=== PATIENT | male | born 1995 | race Caucasian/White ===

== ENCOUNTER 2017-06-18 08:53 | Emergency (ER) | payer BC ==
[2017-06-18] MEDS ORDERED: Sodium Chloride 0.9% 2.5 ML Syringe FLUSH PRN (09:17)
[2017-06-18] MEDS ORDERED: Ondansetron 4 MG/2 ML SDV IVPUSH ONE (09:17)
[2017-06-18] MEDS ORDERED: Dicyclomine 10 MG Cap PO ONE (09:17)
[2017-06-18] MEDS ORDERED: Ketorolac 30 MG/ML SDV IVPUSH ONE (09:17)
[2017-06-18] MEDS ORDERED: Sodium Chloride 0.9% 10 ML Syringe FLUSH PRN (09:17)
[2017-06-18] MEDS ORDERED: Sodium Chloride 0.9% 1,000 ML IV ONE (09:17)
--- NOTE | 2017-06-18 09:25 | EDM.PDOC ---
ED HPI GENERAL MEDICAL PROBLEM - General Chief Complaint: Abdominal Pain Stated Complaint: ABD PAIN Time Seen by Provider: 06/18/17 09:03 - History of Present Illness INITIAL COMMENTS - FREE TEXT/NARRATIVE: HISTORY AND PHYSICAL: History of present illness: The patient is a 22-year-old male who presents with complaints of abdominal pain that started at 1 AM and woke him from sleep. He initially told triage that it was in the upper abdomen and on my evaluation he says it is mid abdomen and spreads right and left. He said it was associated with some dry heaving but no actual vomiting and he has had no fever chills flank pain or urinary complaints. He has no surgical history and has never had an endoscopy or colonoscopy. With imaging in the patient's history is that he takes antidiarrheal medicine almost daily because he says that he will have multiple bowel movements of mushy diarrhea every single day if he does not take over-the- counter antidiarrheals. He says this been going on for years. He has never seen a GI doctor for evaluation of this. He says that he has not had a change in his bowel movements recently and he ate normal food last evening. He did drink 2 beers last evening which is not unusual and he has never had an intolerance to it. He tried [id number] medications and milk to help with discomfort but did not help. He is here for evaluation. Review of systems: As per history of present illness and below otherwise all systems reviewed and negative. Past medical history: As per history of present illness and as reviewed below otherwise noncontributory. Surgical history: As per history of present illness and as reviewed below otherwise noncontributory. Social history: No reported history of drug or alcohol abuse. Family history: As per history of present illness and as reviewed below otherwise noncontributory. Physical exam: Gen.: Well-developed well-nourished thin man who is nontoxic and moves easily in the ED. Vital signs of been noted by me HEENT: Atraumatic, normocephalic, negative for conjunctival pallor or scleral icterus, mucous membranes moist, throat clear, neck supple, nontender, trachea midline. Lungs: Clear to auscultation, breath sounds equal bilaterally, chest nontender. Heart: S1S2, regular, negative for clicks, rubs, or JVD. Abdomen: Soft, nondistended, there is hypoactive bowel sounds and no tympany on percussion. There is discrete tenderness in the left upper left mid and left lower quadrants without any right-sided tenderness, there is no rebound or guarding. Negative for masses or hepatosplenomegaly. Negative for costovertebral tenderness. Pelvis: Stable nontender. Genitourinary: Deferred. Rectal: Deferred. Extremities: Atraumatic, negative for cords or calf pain. Neurovascular unremarkable. Neuro: Awake, alert, oriented. Cranial nerves II through XII unremarkable. Cerebellum unremarkable. Motor and sensory unremarkable throughout. Exam nonfocal. Diagnostics: CBC CMP amylase lipase H. pylori CT scan of the abdomen and pelvis CRP Therapeutics: IV IV fluids Toradol Zofran and Bentyl I discussed with patient TESTING care results and need for follow-up in our clinic. He says he does feel somewhat improved but still has the discomfort. I will start him on a PPI as well as Bentyl and give him referrals to our clinic for further evaluation. Impression: Abdominal pain with history of chronic diarrhea etiology unclear stable Definitive disposition and diagnosis as appropriate pending reevaluation and review of above. Middle Abdominal Pain Score (Numeric/FACES): 8 - Related Data Allergies Allergy/AdvReac Type Severity Reaction Status Date / Time No Known Allergies Allergy Verified 06/18/17 09:06 Home Meds: Home Meds . [No Known Home Meds] 06/18/17 [History] Past Medical History - Past Health History Medical/Surgical History: Denies Medical/Surgical History Social & Family History - Tobacco Use Smoking Status *Q: Never Smoker Second Hand Smoke Exposure: No - Caffeine Use Caffeine Use: Reports: Coffee, Energy Drinks - Recreational Drug Use Recreational Drug Use: No ED ROS GENERAL - Review of Systems Review Of Systems: ROS reveals no pertinent complaints other than HPI. ED EXAM, GENERAL - Physical Exam Exam: See Below (See dictation) Course - Vital Signs Last Recorded V/S: Last Vital Signs Temp 36.7 C 06/18/17 09:04 Pulse 64 06/18/17 09:04 Resp 16 06/18/17 09:04 BP 136/88 06/18/17 09:04 Pulse Ox 96 06/18/17 09:04 - Orders/Labs/Meds Orders: Active Orders 24 hr Category Date Time Status Abdomen Pelvis w Cont [CT] Stat Exams 06/18/17 09:17 Taken Sodium Chloride 0.9% [Saline Flush] Med 06/18/17 09:17 Active 10 ml FLUSH ASDIRECTED PRN Sodium Chloride 0.9% [Saline Flush] Med 06/18/17 09:17 Active 2.5 ml FLUSH ASDIRECTED PRN Saline Lock Insert [OM.PC] Stat Oth 06/18/17 09:17 Ordered Medication Orders Sodium Chloride (Saline Flush) 10 ml FLUSH ASDIRECTED PRN PRN Reason: Keep Vein Open Sodium Chloride (Saline Flush) 2.5 ml FLUSH ASDIRECTED PRN PRN Reason: Keep Vein Open Labs: Laboratory Tests 06/18/17 06/18/17 06/18/17 Range/Units 09:27 09:27 09:27 WBC 12.94 H (4.0-11.0) K/uL RBC 5.13 (4.50-5.90) M/uL Hgb 15.3 (13.0-17.0) g/dL Hct 43.5 (38.0-50.0) % MCV 84.8 (80.0-98.0) fL MCH 29.8 (27.0-32.0) pg MCHC 35.2 (31.0-37.0) g/dL RDW Std Deviation 38.7 (28.0-62.0) fl RDW Coeff of Demetrio 13 (11.0-15.0) % Plt Count 337 (150-400) K/uL MPV 9.50 (7.40-12.00) fL Neut % (Auto) 82.1 H (48.0-80.0) % Lymph % (Auto) 11.6 L (16.0-40.0) % Wheeler % (Auto) 6.0 (0.0-15.0) % Eos % (Auto) 0.1 (0.0-7.0) % Baso % (Auto) 0.2 (0.0-1.5) % Neut # (Auto) 10.6 H (1.4-5.7) K/uL Lymph # (Auto) 1.5 (0.6-2.4) K/uL Wheeler # (Auto) 0.8 (0.0-0.8) K/uL Eos # (Auto) 0.0 (0.0-0.7) K/uL Baso # (Auto) 0.0 (0.0-0.1) K/uL Nucleated RBC % 0.0 /100WBC Nucleated RBCs # 0 K/uL Sodium 137 (136-146) mmol/L Potassium 4.2 (3.5-5.1) mmol/L Chloride 104 (98-110) mmol/L Carbon Dioxide 26 (21-31) mmol/L BUN 10 (6.0-23.0) mg/dL Creatinine 0.9 (0.6-1.5) mg/dL Est Cr Clr Drug Dosing 118.33 mL/min Estimated GFR (MDRD) > 60.0 ml/min Glucose 121 H (60-110) mg/dL Calcium 9.7 (8.8-10.8) mg/dL Total Bilirubin 0.5 (0.1-1.5) mg/dL AST 16 (5-40) IU/L ALT 12 (8-54) IU/L Alkaline Phosphatase 57 (40-150) C-Reactive Protein (0.0-0.5) mg/dL Total Protein 7.5 (6.0-8.0) g/dL Albumin 4.6 (3.5-5.0) g/dL Globulin 2.9 (2.0-3.5) g/dL Albumin/Globulin Ratio 1.6 (1.3-2.8) Amylase 69 (10-90) U/L Lipase < 9 (7-80) U/L H. pylori IgG Antibody NEGATIVE (NEG) 06/18/17 Range/Units 09:27 WBC (4.0-11.0) K/uL RBC (4.50-5.90) M/uL Hgb (13.0-17.0) g/dL Hct (38.0-50.0) % MCV (80.0-98.0) fL MCH (27.0-32.0) pg MCHC (31.0-37.0) g/dL RDW Std Deviation (28.0-62.0) fl RDW Coeff of Demetrio (11.0-15.0) % Plt Count (150-400) K/uL MPV (7.40-12.00) fL Neut % (Auto) (48.0-80.0) % Lymph % (Auto) (16.0-40.0) % Wheeler % (Auto) (0.0-15.0) % Eos % (Auto) (0.0-7.0) % Baso % (Auto) (0.0-1.5) % Neut # (Auto) (1.4-5.7) K/uL Lymph # (Auto) (0.6-2.4) K/uL Wheeler # (Auto) (0.0-0.8) K/uL Eos # (Auto) (0.0-0.7) K/uL Baso # (Auto) (0.0-0.1) K/uL Nucleated RBC % /100WBC Nucleated RBCs # K/uL Sodium (136-146) mmol/L Potassium (3.5-5.1) mmol/L Chloride (98-110) mmol/L Carbon Dioxide (21-31) mmol/L BUN (6.0-23.0) mg/dL Creatinine (0.6-1.5) mg/dL Est Cr Clr Drug Dosing mL/min Estimated GFR (MDRD) ml/min Glucose (60-110) mg/dL Calcium (8.8-10.8) mg/dL Total Bilirubin (0.1-1.5) mg/dL AST (5-40) IU/L ALT (8-54) IU/L Alkaline Phosphatase (40-150) C-Reactive Protein 0.07 (0.0-0.5) mg/dL Total Protein (6.0-8.0) g/dL Albumin (3.5-5.0) g/dL Globulin (2.0-3.5) g/dL Albumin/Globulin Ratio (1.3-2.8) Amylase (10-90) U/L Lipase (7-80) U/L H. pylori IgG Antibody (NEG) Meds: Medications Generic Name Dose Route Start Last Admin Trade Name Freq PRN Reason Stop Dose Admin Sodium Chloride 10 ml 06/18/17 09:17 Saline Flush FLUSH ASDIRECTED PRN Keep Vein Open Sodium Chloride 2.5 ml 06/18/17 09:17 Saline Flush FLUSH ASDIRECTED PRN Keep Vein Open Discontinued Medications Generic Name Dose Route Start Last Admin Trade Name Freq PRN Reason Stop Dose Admin Dicyclomine HCl 20 mg 06/18/17 09:17 06/18/17 09:31 Bentyl PO 06/18/17 09:18 20 mg ONETIME ONE Administration Sodium Chloride 1,000 mls @ 999 mls/hr 06/18/17 09:17 06/18/17 09:31 Normal Saline IV 06/18/17 10:17 999 mls/hr STAT ONE Administration Iopamidol 86 ml 06/18/17 10:02 06/18/17 10:10 Isovue Multipack-370 (76%) IVPUSH 06/18/17 10:03 86 ml ONETIME STA Administration Ketorolac Tromethamine 30 mg 06/18/17 09:17 06/18/17 09:31 Toradol IVPUSH 06/18/17 09:18 30 mg ONETIME ONE Administration Ondansetron HCl 4 mg 06/18/17 09:17 06/18/17 09:31 Zofran IVPUSH 06/18/17 09:18 4 mg ONETIME ONE Administration Departure - Departure Time of Disposition: 11:26 Disposition: Home, Self-Care 01 Condition: Good Clinical Impression: Chronic diarrhea Abdominal pain Qualifiers: Abdominal location: periumbilical Qualified Code(s): R10.33 - Periumbilical pain - Discharge Information Referrals: PCP,None [Primary Care Provider] - Forms: ED Department Discharge Additional Instructions: The following information is given to patients seen in the emergency department who are being discharged to home. This information is to outline your options for follow-up care. We provide all patients seen in our emergency department with a follow-up referral. The need for follow-up, as well as the timing and circumstances, are variable depending upon the specifics of your emergency department visit. If you don't have a primary care physician on staff, we will provide you with a referral. We always advise you to contact your personal physician following an emergency department visit to inform them of the circumstance of the visit and for follow-up with them and/or the need for any referrals to a consulting specialist. The emergency department will also refer you to a specialist when appropriate. This referral assures that you have the opportunity for followup care with a specialist. All of these measure are taken in an effort to provide you with optimal care, which includes your followup. Under all circumstances we always encourage you to contact your private physician who remains a resource for coordinating your care. When calling for followup care, please make the office aware that this follow-up is from your recent emergency room visit. If for any reason you are refused follow-up, please contact the [facility] emergency department at and ask to speak to the emergency department charge nurse. [facility] Primary care- Internal Medicine and Family [address] [address] Please call our clinic tomorrow to schedule a follow-up appointment as we discussed. Use medications as directed and try to locate your diet to ascertain if there is any triggers with this discomfort or your diarrhea. Push hydration. Return to ER as needed and as discussed. Avoid caffeinated products and alcohol - My Orders Last 24 Hours: My Active Orders 06/18/17 09:17 Abdomen Pelvis w Cont [CT] Stat Sodium Chloride 0.9% [Saline Flush] 10 ml FLUSH ASDIRECTED PRN Sodium Chloride 0.9% [Saline Flush] 2.5 ml FLUSH ASDIRECTED PRN Saline Lock Insert [OM.PC] Stat - Assessment/Plan Last 24 Hours: My Active Orders 06/18/17 09:17 Abdomen Pelvis w Cont [CT] Stat Sodium Chloride 0.9% [Saline Flush] 10 ml FLUSH ASDIRECTED PRN Sodium Chloride 0.9% [Saline Flush] 2.5 ml FLUSH ASDIRECTED PRN Saline Lock Insert [OM.PC] Stat
[2017-06-18 09:55] LABS: CHLORIDE,CL 104 mmol/L (98-110); SODIUM,NA 137 mmol/L (136-146)
[2017-06-18] MEDS ORDERED: Iopamidol 755 MG/ML 500 ML Multipack Bottle IVPUSH STA (10:02)
--- NOTE | 2017-06-20 11:37 | CT ---
EXAM DATE: 06/18/17 PATIENT'S AGE: 22 Patient: JUAN CARLOS HINOJOSA Facility: [place], [place] Site . Site : 1995 Study: CT Abdomen/Pelvis W CRISTINE [id number] 10:30:05 AM Ordering Physician: Conrad Márquez Final Report: INDICATION: Abdominal pain. TECHNIQUE: CT abdomen and pelvis acquired with 85 cc Isovue 370 IV contrast. COMPARISON: None. FINDINGS: LOWER CHEST: Unremarkable. LIVER: Unremarkable. Normal in size and attenuation. No masses. GALLBLADDER AND BILE DUCTS: Unremarkable. No stones or inflammation. No biliary dilatation. PANCREAS: Unremarkable. No mass or inflammation. SPLEEN: Unremarkable. Normal in size. No masses. ADRENAL GLANDS: Unremarkable. No nodules. KIDNEYS: Unremarkable. No masses, stones, or hydronephrosis. GI TRACT: Unremarkable. Normal in caliber. No sign of mass or inflammation. VASCULATURE: Unremarkable. LYMPH NODES: No lymphadenopathy. OMENTUM/PERITONEUM/ABDOMINAL WALL: Unremarkable. No sign of mass or infiltration. No free air or significant free fluid. PELVIS: Unremarkable. BONES: Unremarkable for age. IMPRESSION: Unremarkable CT of the abdomen and pelvis. No findings to explain abdominal pain. Dictated by Yony Peterson MD @ 06/18/2017 10:42:28 AM Dictated by: Yony Peterson MD @ 06/18/2017 10:42:33 (Electronic Signature) Report Signed by Proxy. [facility]
== END 2017-06-18 11:35 | disposition home or self-care (01) ==
LOC: MW.ED 08:53
DX: K52.9 Noninfective gastroenteritis and colitis, unspecified (principal)
CPT/HCPCS: 36415; 74177; 80053; 82150; 83690; 85025; 86140; 86677; 96361; 96374; 96375; 99284; A9270; J1885; J2405; J7040; Q9967; 99283